=== PATIENT | male | born 1975 | race Hispanic/Latino ===

== ENCOUNTER 2020-12-23 16:42 | Emergency (ER) | payer OTHER ==
[~2020-12-23] VITALS: Ht 170.2 cm; Wt 75.0 kg
[2020-12-23 18:45] VITALS: BP 149/70
== END 2020-12-23 18:45 | disposition home or self-care (01) | DRG 556 ==
LOC: ED 16:42
DX: M25.561 Pain in right knee (principal); X50.0XXA Overexertion from strenuous movement or load, initial encounter; Y93.89 Activity, other specified; Y99.0 Civilian activity done for income or pay